=== PATIENT | male | born 1945 | race Caucasian/White ===

== ENCOUNTER → 2023-08-19 09:16 | Outpatient (REF) | payer MEDICARE, SELFPAY | LOC: HWRAD 09:16 | PROVIDERS: ATTENDING PHYSICIAN Physician Assistant Medical; FAMILY PHYSICIAN Physician Assistant | DX: Z98.1 Arthrodesis status (principal); G89.29 Other chronic pain; M25.511 Pain in right shoulder | CPT/HCPCS: 72050; 72110; 73030 ==

== ENCOUNTER → 2024-02-06 11:00 | Outpatient (REF) | payer MEDICARE, SELFPAY | LOC: RAD 11:00 | PROVIDERS: ATTENDING PHYSICIAN Internal Medicine Rheumatology; FAMILY PHYSICIAN Family Medicine; PRIMARYCARE PHYSICIAN Family Medicine | DX: R09.89 Other specified symptoms and signs involving the circulatory and respiratory systems (principal); R05.3 Chronic cough; M25.50 Pain in unspecified joint; M79.641 Pain in right hand; M79.642 Pain in left hand | CPT/HCPCS: 71046; 73110; 73130 ==

== ENCOUNTER → 2024-02-11 10:49 | Outpatient (REF) | payer MEDICARE, SELFPAY | LOC: HWRAD 10:49 | PROVIDERS: ATTENDING PHYSICIAN Internal Medicine Rheumatology; FAMILY PHYSICIAN Family Medicine | DX: Z13.820 Encounter for screening for osteoporosis (principal); S32.050D Wedge compression fracture of fifth lumbar vertebra, subsequent encounter for fracture with routine healing | CPT/HCPCS: 77080; 77081 ==

== ENCOUNTER → 2024-05-18 12:32 | Outpatient (REF) | payer MEDICARE, SELFPAY | LOC: HWRAD 12:32 | PROVIDERS: ATTENDING PHYSICIAN Student in an Organized Health Care Education/Training Program; FAMILY PHYSICIAN Family Medicine | DX: M25.461 Effusion, right knee (principal); M15.9 Polyosteoarthritis, unspecified; M54.2 Cervicalgia | CPT/HCPCS: 72052 ==

== ENCOUNTER → 2024-07-10 10:41 | Outpatient (REF) | payer MEDICARE, SELFPAY | LOC: HWRAD 10:41 | PROVIDERS: ATTENDING PHYSICIAN Internal Medicine Nephrology; FAMILY PHYSICIAN Family Medicine | DX: N18.31 Chronic kidney disease, stage 3a (principal) | CPT/HCPCS: 76770 ==

== ENCOUNTER → 2024-07-30 13:05 | Outpatient (REF) | payer MEDICARE, SELFPAY | LOC: HWRAD 13:05 | PROVIDERS: ATTENDING PHYSICIAN Family Medicine | DX: F17.210 Nicotine dependence, cigarettes, uncomplicated (principal) | CPT/HCPCS: 71250 ==

== ENCOUNTER 2024-12-24 06:27 | Day surgery (SDC) | payer MEDICARE, SELFPAY ==
[2024-12-14 11:26] LABS: Hematocrit 37.7 % (39.0-52.0); Hemoglobin 12.7 g/dL (13.0-18.0); Mean Corp Hgb Conc. 33.7 g/dL (33.0-37.0); Mean Corpuscular Volume 88.9 fL (80.0-94.0); Platelet Count 218 10^3/uL (130-400); Red Cell Dist. Width 12.6 % (11.5-14.5)
[2024-12-14 12:08] LABS: Blood Urea Nitrogen 34 mg/dl (9-20); Calcium 9.2 mg/dl (8.4-10.2); Carbon Dioxide 25 mmol/L (22-30); Chloride 106 mmol/L (98-107); Glucose 108 mg/dl (70-99); Potassium 4.6 mmol/L (3.5-5.1); Sodium 141 mmol/L (135-145); eGFR 40.75
[2024-12-14 14:12] VITALS: BMI 35.0
--- NOTE | 2024-12-15 12:38 | PTCARENOTE ---
Patients 12/14 Creat- 1.7, GFR 40.75- Maryellen @ Dr. Shearer office notified
[2024-12-24] VITALS (9 sets, daily range): BP systolic 111–147; BP diastolic 59–77; BMI 35.0
[2024-12-24] MEDS: CYSVIEW KIT 100 MG INTRAVES (07:44)
[2024-12-24] MEDS: NORMOSOL-R/PLASMALYTE-A 1000 IV (08:00)
[2024-12-24] MEDS: SYRINGE NON-PUMP 50 ML IRRIG ×2 (09:48→09:50)
[2024-12-24] MEDS: SYRINGE NON-PUMP 50 MG IRRIG ×2 (09:48→09:50)
== END 2024-12-24 11:30 | disposition home or self-care (01) ==
LOC: SDS 06:27
PROVIDERS: ATTENDING PHYSICIAN Specialist; FAMILY PHYSICIAN Family Medicine
DX: D09.0 Carcinoma in situ of bladder (principal)
CPT/HCPCS: 52235; C9738; 36415; 80048; 85027; 88307; A9589; J9201

== ENCOUNTER → 2025-03-29 13:25 | Outpatient (REF) | payer MEDICARE, SELFPAY | LOC: HWRAD 13:25 | PROVIDERS: ATTENDING PHYSICIAN Family Medicine | DX: M17.0 Bilateral primary osteoarthritis of knee (principal) | CPT/HCPCS: 73562 ==